=== PATIENT | female | born 1960 | race Caucasian/White ===

== ENCOUNTER → 2017-01-21 19:38 | Outpatient (CLI) | payer OTHER | END | disposition home or self-care (01) | LOC: D.LABREF 19:38 | DX: N39.0 Urinary tract infection, site not specified (principal) ==

== ENCOUNTER 2017-01-22 10:58 | Emergency (ER) | payer OTHER ==
[2017-01-22 12:18] LABS: BASOPHILS 0.7 % (0-2); EOSINOPHILS 7.4 % (0-7); HEMATOCRIT 35.7 % (36.0-48.0); HEMOGLOBIN 11.8 g/dL (12-16); IMMATURE GRANULOCYTES 0.2 % (0-5); LYMPHOCYTES 25.2 % (15-50); MCHC 33.1 g/dL (31.0-37.0); MCV 84.8 fL (80.0-100.0); MONOCYTES 8.3 % (2-11); NEUTROPHILS 58.2 % (40-80); PLATELET COUNT 334 10x3/uL (130-400); RBC 4.21 10x6/uL (4.00-5.40); RDW 13.6 % (11.5-14.5); WBC 5.4 10x3/uL (4.8-10.8)
[2017-01-22 12:28] LABS: APTT 26.5 SECONDS (22.8-39.4); INR 0.91 (0.85-1.17); PROTIME 12.1 SECONDS (11.6-15.0)
[2017-01-22 12:33] LABS: ALBUMIN 3.5 g/dL (3.4-5.0); ALKALINE PHOSPHATASE 147 U/L (46-116); ALT (SGPT) 80 U/L (10-68); CALC OSMOLALITY 265 mosm/kg (275-300); CARBON DIOXIDE 27.3 mmol/L (21.0-32.0); CHLORIDE - SERUM 97 mmol/L (98-107); CREATININE - SERUM 0.9 mg/dL (0.6-1.3); GLUCOSE 105 mg/dL (74-106); POTASSIUM - SERUM 4.1 mmol/L (3.5-5.1); PROTEIN - SERUM 7.3 g/dL (6.4-8.2); SODIUM 132 mmol/L (136-145); UREA NITROGEN 14 mg/dL (7-18); eGFR NON AFRICAN AMERICAN 68 mL/min (90-120)
[2017-01-22 12:40] LABS: LIPASE 133 U/L (73-393); TROPONIN-I < 0.017 ng/mL (0.000-0.060)
== END 2017-01-22 16:33 | disposition home or self-care (01) ==
LOC: D.ER 10:58
PROVIDERS: Emergency Medicine
DX: K57.92 Diverticulitis of intestine, part unspecified, without perforation or abscess without bleeding (principal)

== ENCOUNTER → 2017-01-28 16:04 | Outpatient (CLI) | payer OTHER ==
[2017-01-28 20:37] LABS: AMYLASE - SERUM 68 U/L (25-115); LIPASE 150 U/L (73-393)
== END | disposition home or self-care (01) ==
LOC: D.LABREF 16:04
PROVIDERS: Family Medicine
DX: R10.9 Unspecified abdominal pain (principal)

== ENCOUNTER 2017-05-18 08:47 | Day surgery (SDC) | payer MEDICAID ==
[2017-05-18] MEDS ORDERED: LEVOXYL25 MCG PO (09:25)
[2017-05-18] MEDS ORDERED: ESTRACE2 MG PO (09:26)
[2017-05-18] MEDS ORDERED: OMEPRAZOLE40 MG PO (09:27)
[2017-05-18] MEDS ORDERED: HYDROCODONE-APA1 TAB PO (09:27)
[2017-05-18 10:08] VITALS: BMI 29.3
--- NOTE | 2017-05-18 18:25 | NUR ---
PATIENT AMBULATING AROUND ROOM WITHOUT DIZZINESS OR DIFFICULTY. LEFT AC PIV DC'D WITH TIP INTACT. PATIENT DRESSING IN PERSONAL CLOTHING
--- NOTE | 2017-05-18 18:30 | NUR ---
DISCHARGED HOME VIA WHEELCHAIR TO PRIVATE VEHICLE WITH SPOUSE
--- NOTE | 2017-05-22 16:01 | OP ---
PATIENT NAME: J LUIS JACOBO MEDICAL RECORD: [id number] :56 LOCATION:DFLAVIO ADMISSION DATE: SURGEON: GELY GONZALEZ MD DATE OF OPERATION: 05/18/2017 PROCEDURE: EGD with food bolus removal and biopsy. REFERRING PHYSICIAN: Gordon Isaac MD. INDICATIONS: Ms. Jacobo is a very pleasant 56-year-old woman with a history of esophageal Schatzki's ring, who presented to [facility] Emergency Department after developing a food bolus after eating a piece of chicken. She was evaluated at [facility] in stable condition and transferred to outpatient department at [facility]. She received IV Valium 10 mg this morning and morphine 10 mg early afternoon. She continues to have difficulty managing or oral secretion. She presents for outpatient EGD. PREMEDICATIONS: Total IV anesthesia, propofol 200 mg, succinylcholine 100 mg. INSTRUMENT: Olympus video gastroscope. PROCEDURE AND FINDINGS: After receiving informed consent, Ms. Turner posterior pharynx was anesthetized with Cetacaine spray, and she was sedated with propofol and then received succinylcholine. Her trachea was intubated by anesthesia and then the gastroscope was introduced per orally and advanced into the duodenum. There was a proximal esophageal food bolus, which was removed per orally with suctioning from the gastroscope and then there was a food bolus at the GE junction that was advanced gently without difficulty into her hiatal hernia. She had a large, possibly paraesophageal hernia. There were numerous gastric polyps in the body of the stomach, several of which were biopsied. There were streaks of erythema in the antrum and antral biopsies were obtained to rule out Helicobacter pylori. On retroflexion, the hiatal hernia was appreciated. There was no lesion seen in the fundus. Pylorus was patent and competent. Duodenal mucosa was without erythema or ulcers. The major ampulla was mildly prominent, slightly erythematous and was biopsied. As the gastroscope was withdrawn, repeat inspection was made of the esophagus. At the GE junction, was a thick nonobstructive Schatzki's ring that was moderately erythematous and mildly ulcerated (not dilated on this exam). There was no obvious stricture or narrowing in the mid or proximal esophagus. The gastroscope was withdrawn. She was then extubated. No immediate complications. Procedure was well tolerated. ASSESSMENT: 1. Proximal and distal esophageal food bolus, status post removal. 2. Thick esophageal Schatzki's ring at the gastroesophageal junction. 3. Large hiatal hernia may be paraesophageal in nature. 4. Gastric polyps, status post biopsy. 5. Mild gastritis. 6. Prominent major ampulla, status post biopsy. RECOMMENDATIONS: 1. Follow up histopathology. 2. We would recommend avoiding nonsteroidal anti-inflammatory drugs for a week. 3. Gastric soft diet. 4. Continue omeprazole 40 mg p.o. daily. 5. Upper gastrointestinal series to further evaluate her hiatal hernia. OPERATIVE REPORT [id number] J LUIS JACOBO 6. Follow up EGD in approximately 4 weeks, at which time esophagus will have adequately healed for repeat EGD and esophageal balloon dilatation. TRANSINT:[id number] Voice Confirmation ID: [id number] DOCUMENT ID: [id number] GELY GONZALEZ MD at 1601 CC: GORDON ISAAC MD [id number] DICTATION DATE: 05/18/171704 SEISMIC OBSERVER: 05/18/17 8789 [facility] 05/18/17 [address] [place] [address]
== END 2017-05-18 18:30 | disposition home or self-care (01) ==
LOC: D.OPS 08:47
DX: T18.128A Food in esophagus causing other injury, initial encounter (principal); K22.2 Esophageal obstruction; K44.9 Diaphragmatic hernia without obstruction or gangrene; K31.7 Polyp of stomach and duodenum; K29.70 Gastritis, unspecified, without bleeding; Z01.812 Encounter for preprocedural laboratory examination

== ENCOUNTER 2017-05-22 17:57 | Emergency (ER) | payer MEDICAID ==
[~2017-05-22 17:57] MED LIST: ESTRACE2 MG PO; HYDROCODONE-APA1 TAB PO; LEVOXYL25 MCG PO; OMEPRAZOLE40 MG PO
[2017-05-22 18:32] LABS: BASOPHILS 0.4 % (0-2); EOSINOPHILS 4.9 % (0-7); HEMATOCRIT 34.7 % (36.0-48.0); HEMOGLOBIN 11.1 g/dL (12-16); IMMATURE GRANULOCYTES 0.3 % (0-5); LYMPHOCYTES 42.4 % (15-50); MCH 24.2 pg (26.0-34.0); MCV 75.6 fL (80.0-100.0); MEAN PLATELET VOLUME 8.7 fL (7.4-10.4); MONOCYTES 7.6 % (2-11); NEUTROPHILS 44.4 % (40-80); RBC 4.59 10x6/uL (4.00-5.40); RDW 14.7 % (11.5-14.5); WBC 6.9 10x3/uL (4.8-10.8)
[2017-05-22 18:34] LABS: PLATELET COUNT 408 10x3/uL (130-400)
[2017-05-22 18:35] LABS: APPEARANCE HAZY (CLEAR); BILIRUBIN NEGATIVE (NEGATIVE); COLOR YELLOW (YELLOW); GLUCOSE NEGATIVE (NEGATIVE); KETONE NEGATIVE (NEGATIVE); NITRITE NEGATIVE (NEGATIVE); PH 6.5 (5.0-6.0); PROTEIN NEGATIVE (NEGATIVE); UROBILINOGEN NORMAL (NORMAL)
[2017-05-22 18:53] LABS: ANION GAP 13.7 mmol/L (8-16); BILIRUBIN - TOTAL 0.23 mg/dL (0.2-1.3); CREATININE - SERUM 0.9 mg/dL (0.6-1.3); POTASSIUM - SERUM 3.7 mmol/L (3.5-5.1); PROTEIN - SERUM 8.2 g/dL (6.4-8.2)
== END 2017-05-22 21:25 | disposition home or self-care (01) ==
LOC: D.ER 17:57
PROVIDERS: Family Medicine; Nurse Practitioner Acute Care
DX: K59.00 Constipation, unspecified (principal)

== ENCOUNTER 2017-09-23 09:38 | Outpatient (CLI) | payer MEDICAID | END 2017-09-23 11:45 | LOC: D.OPS 09:38 | DX: K21.9 Gastro-esophageal reflux disease without esophagitis (principal); R11.0 Nausea; R10.13 Epigastric pain ==

== ENCOUNTER 2017-11-02 07:00 | Day surgery (SDC) | payer MEDICAID ==
[2017-11-01 09:47] LABS: BASOPHILS 0.8 % (0-2); EOSINOPHILS 2.1 % (0-7); HEMATOCRIT 33.5 % (36.0-48.0); HEMOGLOBIN 10.5 g/dL (12-16); IMMATURE GRANULOCYTES 0.2 % (0-5); LYMPHOCYTES 35.9 % (15-50); MCH 22.5 pg (26.0-34.0); MCHC 31.3 g/dL (31.0-37.0); MCV 71.7 fL (80.0-100.0); MONOCYTES 6.9 % (2-11); NEUTROPHILS 54.1 % (40-80); PLATELET COUNT 342 10x3/uL (130-400); RBC 4.67 10x6/uL (4.00-5.40); RDW 16.7 % (11.5-14.5); WBC 5.2 10x3/uL (4.8-10.8)
[2017-11-01 09:59] LABS: ANION GAP 11.4 mmol/L (8-16); CALCIUM 9.3 mg/dL (8.5-10.1); CARBON DIOXIDE 26.7 mmol/L (21.0-32.0); CREATININE - SERUM 0.9 mg/dL (0.6-1.3); POTASSIUM - SERUM 4.1 mmol/L (3.5-5.1)
[~2017-11-02] VITALS: Ht 152.4 cm; Wt 69.4 kg
--- NOTE | ~2017-11-02 | OP ---
PATIENT NAME: J LUIS JACOBO MEDICAL RECORD: [id number] :56 LOCATION:D.MS Silva.2212 ADMISSION DATE: SURGEON: CARLOS EDUARDO GALVEZ MD DATE OF OPERATION: 11/02/2017 PREOPERATIVE DIAGNOSES: 1. Gastroesophageal reflux disease. 2. Hiatal hernia. 3. Hyperthyroidism. POSTOPERATIVE DIAGNOSES: 1. Gastroesophageal reflux disease. 2. Hiatal hernia. 3. Hyperthyroidism. PROCEDURE: Laparoscopic hiatal hernia repair with Toupet fundoplication. SURGEON: Carlos Eduardo Galvez MD REPORT OF PROCEDURE: The patient's abdomen was prepped and draped in sterile fashion. A Veress needle was inserted in the left upper quadrant and the abdomen was insufflated. An 11-mm Visiport trocar was inserted in the midline just above the umbilicus. I could see the Veress needle and there was no sign of any injury to bowel or surrounding structures. The Veress needle was then removed and an 11-mm trocar was placed in its place in the left subcostal region. A 5-mm trocar was then placed in the epigastrium, a 5-mm trocar was placed in the right lateral subcostal region, and a final 5-mm trocar was placed in the left lateral abdomen. A liver retractor was inserted and the left lobe of the liver was elevated. At this point, we could see that there was a hiatal hernia with approximately a third of the stomach projecting up into the chest. We started our dissection on the lesser curvature taking down the lesser omentum using Harmonic scalpel. This dissection was continued to the right side of the right chadd. We dissected up into the thoracic cavity and freed up all the adhesions that were present as far proximally and distally as possible. We then approached the greater curvature and fundus of the stomach and took down the short gastrics using Harmonic scalpel. We continued this dissection up to the left side of the right chadd. We continued our dissection into the thoracic cavity. At this point, we had a 360-degree inspection of the esophagus, and the stomach and hiatal hernia were easily placed in the abdominal cavity with no tension. The esophageal hiatus was then reapproximated with interrupted 0 Polydeks times 3. We then performed a 270-degree posterior partial Toupet wrap of the fundus of the stomach around the distal esophagus. This was performed with a total of 6 sutures taking a bite of the esophagus and the edges of the stomach. The wrap appeared to be in good position with no sign of any active bleeding. The indwelling orogastric tube was then removed easily. We irrigated out the abdomen and assured there was no sign of any bleeding. The 11-mm trocar site fascias were then closed with interrupted 0 Vicryls using a Denis-Ashkan suture passer device. The ports and insufflation were then removed. The subcutaneous tissues were all irrigated out and then reapproximated and then infused with 10 mL of 0.25% Marcaine with epinephrine. The skin incisions were closed with subcutaneous 5-0 Monocryl and dressed appropriately. COMPLICATIONS: None. CONDITION: Stable. OPERATIVE REPORT [id number] J LUIS JACOBO ANESTHESIA: General endotracheal and local. BLOOD LOSS: 30 mL. TRANSINT:[id number] Voice Confirmation ID: [id number] DOCUMENT ID: [id number] CARLOS EDUARDO GALVEZ MD at 1413 CC: GELY GONZALEZ MD [id number] DICTATION DATE: 11/02/17 1059 BUY BOAT OPERATOR: 11/02/17 1204 [facility] [address] [place] [address]
[~2017-11-02 07:00] MED LIST changes: +CYCLOBENZAPRINE10 MG PO; +ESTRACE 0.5 MG0.5 MG PO; -ESTRACE2 MG PO; +LEVOXYL125 MCG PO; -LEVOXYL25 MCG PO; +MELATONIN5 MG PO; +OMEPRAZOLE20 M1 PO; -OMEPRAZOLE40 MG PO; +ULTRAM50 MG PO; +ZANTAC300 MG PO
[2017-11-02 08:11] VITALS: BP 126/67; BMI 29.9
[2017-11-02 11:51] VITALS: BP 143/56
[2017-11-02 12:19] VITALS: BP 178/108
[2017-11-02 22:21] VITALS: BP 130/58
[2017-11-03 01:10] VITALS: BP 134/58
[2017-11-03 05:03] VITALS: BP 100/42
[2017-11-03 06:40] LABS: CALC OSMOLALITY 277 mosm/kg (275-300); CALCIUM 8.4 mg/dL (8.5-10.1); CARBON DIOXIDE 25.3 mmol/L (21.0-32.0); CHLORIDE - SERUM 106 mmol/L (98-107); CREATININE - SERUM 0.8 mg/dL (0.6-1.3); GLUCOSE 88 mg/dL (74-106); POTASSIUM - SERUM 3.7 mmol/L (3.5-5.1); SODIUM 141 mmol/L (136-145); eGFR NON AFRICAN AMERICAN 78 mL/min (90-120)
[2017-11-03 06:41] LABS: UREA NITROGEN 7 mg/dL (7-18)
[2017-11-03 06:42] LABS: BASOPHILS 0.2 % (0-2); EOSINOPHILS 0 % (0-7); HEMATOCRIT 31.6 % (36.0-48.0); HEMOGLOBIN 9.6 g/dL (12-16); IMMATURE GRANULOCYTES 0.2 % (0-5); LYMPHOCYTES 27.7 % (15-50); MCH 22.1 pg (26.0-34.0); MCHC 30.4 g/dL (31.0-37.0); MCV 72.8 fL (80.0-100.0); MEAN PLATELET VOLUME 9.2 fL (7.4-10.4); MONOCYTES 10.1 % (2-11); NEUTROPHILS 61.8 % (40-80); PLATELET COUNT 298 10x3/uL (130-400); RBC 4.34 10x6/uL (4.00-5.40); RDW 16.8 % (11.5-14.5); WBC 4.7 10x3/uL (4.8-10.8)
[2017-11-03 07:52] VITALS: BP 139/59
[2017-11-03 12:20] VITALS: BP 173/74
[2017-11-03 12:30] VITALS: Ht 152.4 cm; Wt 69.4 kg
[2017-11-03] MEDS ORDERED: REGLAN10 MG PO (12:47)
[2017-11-03] MEDS ORDERED: HYDROCODONE-APA1 TAB PO (12:48)
== END 2017-11-03 15:32 | disposition home or self-care (01) ==
LOC: D.MS 07:00 → D.OPS 07:00 → D.PAN 09:00 → D.MS 11:35 → D.OPS 11-03 15:32
PROVIDERS: Surgery
DX: K21.9 Gastro-esophageal reflux disease without esophagitis (principal); K44.9 Diaphragmatic hernia without obstruction or gangrene; E05.90 Thyrotoxicosis, unspecified without thyrotoxic crisis or storm; Z01.812 Encounter for preprocedural laboratory examination

== ENCOUNTER 2018-10-18 07:30 | Outpatient (CLI) | payer MEDICAID ==
[~2018-10-18] VITALS: Ht 152.4 cm; Wt 68.6 kg
--- NOTE | ~2018-10-18 | HEMODYNAMI ---
PATIENT:J LUIS JACOBO MEDICAL RECORD: [id number] : 56 LOCATION:DDemetrisCAT ADMISSION DATE: 10/18/18 Generatedon:10/18/20189:21 Patient name: J LUIS JACOBO Patient #: [id number] SSN: : 1960 Date of study: 10/18/2018 Page: Of Hemodynamic Procedure Report Patient Data Patient Demographics Procedure consent was obtained First Name: J LUIS Gender: Female Last Name: DONNELL : 1960 [facility] Initial: HILL Age: 58 year(s) Patient #: [id number] Race: Unknown Additional ID: [id number] Contact details Address: [address] [address] State: [place] City: [place] Zip code: [address] Past Medical History Allergies Allergen Reaction Date Comments Reported Codeine 10/18/2018 Percocet 10/18/2018 Admission Admission Data Admission Date: 10/18/2018 Admission Time: 9:30 Procedure Procedure Types Cath Procedure Diagnostic Procedure LHC LHC w/Coronaries Procedure Description Procedure Date Procedure Date: 10/18/2018 Procedure Start Time: 9:04 Procedure End Time: 9:21 Procedure Staff Name Function Emanuel Cat MD Performing Physician Hal Landaverde RN Nurse Africa Cosme RT Scrub Kaylynn Duron RT Monitor Procedure Data Cath Procedure Fluoroscopy Diagnostic fluoroscopy Total fluoroscopy Time: 3.8 time: 3.8 min min Diagnostic fluoroscopy Total fluoroscopy dose: 226 dose: 226 mGy mGy Contrast Material Contrast Material Type Amount (ml) Isovue 300 35 Entry Location Entry Primary Successful Side Size Upsize Upsize Entry Closure Andersen ccessful Closure Location (Fr) 1 (Fr) 2 (Fr) Remarks Device Remarks Radial Right 6 Fr Mechanical artery Short Compression Femoral Right 5 Fr Exoseal artery Estimated blood loss: 5 ml Diagnostic catheters Device Type Used For End Catheter Placement DIAGNOSTIC [place] 110cm 5 Procedure Fr catheter ([id number]) MULTIPACK JL 4.0 5Fr Left Coronary catheter Angiography MULTIPACK 3DRC 5Fr Right Coronary catheter Angiography MULTIPACK Pigtail 5 Fr LV Angiography catheter Procedure Complications No complications Procedure Medications Medication Administration Route Dosage Oxygen etCO2 Nasal cannula 2 l/min Zofran I.V. 4 mg Lidocaine 2% added to field 20 Heparin Flush Bag added to field 2 bags (1000units/500ml NS) 0.9% NaCl I.V. 100 ml/hr Radial Cocktail added to field 1 syringe (Verapomil 2mg/Nitro 400mcg/Heparin 1500units) Versed I.V. 2 mg Fentanyl I.V. 50 mcg Versed I.V. 1 mg Fentanyl I.V. 50 mcg Hemodynamics Rest Heart Rate: 79 (bpm) Pressure Samples Time Site Value (mmHg) Purpose Heart Use Rate(bpm) 9:16 LV 120/5,8 EDP 101 Gradients Valve Time Site Site Mean SEP/DFP Peak To Heart Use 1 2 (mmHg) (sec/min) Peak Rate (mmHg) (bpm) Aortic 9:17 LV AO 101 Snapshots Pre Cath Intra NCS Post Cath Vital Signs Time Heart Resp SPO2 etCO2 NIBP (mmHg) Rhythm Pain Sedation Rate (ipm) (%) (mmHg) Status Level (bpm) 8:59:03 78 25 100 34.9 155/81(117) NSR 0 (11) 10(A) , No pain 9:03:19 77 23 99 0 133/68(106) NSR 0 (11) 10(A) , No pain 9:07:31 80 21 96 28.8 149/74(117) NSR 0 (11) 9(A) , No pain 9:11:43 97 29 99 34.9 111/67(80) NSR 0 (11) 9(A) , No pain 9:15:49 96 18 100 34.1 129/69(100) NSR 0 (11) 9(A) , No pain 9:20:01 93 16 100 34.2 120/67(84) NSR 0 (11) 10(A) , No pain Medications Time Medication Route Dose Verified Delivered Reason Notes Effectiveness by by 8:58:12 Oxygen etCO2 2 l/min Emanuel Hong used for Nasal St Christiano Landaverde RN procedure cannula 8:58:18 Zofran I.V. 4 mg Emanuel Hong Per [facility] Christiano Landaverde RN physician 9:00:59 Lidocaine 2% added 20ml Emanuel Castellanos for local to vial [facility] anesthetic field MD ISBELL 9:01:04 Heparin Flush added 2 bags Emanuel Castellanos used for Bag to [facility] procedure (1000units/500ml field MD ISBELL NS) 9:01:14 0.9% NaCl I.V. 100 Emanuel Hong Per ml/hr St Christiano martinez MD 9:01:21 Radial Cocktail added 1 Emanuel Castellanos for (Verapomil to syringe [facility] vasodilation 2mg/Nitro field MD ISBELL 400mcg/Heparin 1500units) 9:03:17 Versed I.V. 2 mg Emanuel Hong for sedation St Christiano Landaverde RN, MD 9:03:24 Fentanyl I.V. 50 mcg Emanuel Hong for sedation St Christiano Landaverde RN, MD 9:08:34 Versed I.V. 1 mg Emanuel Blackie for sedation St Christiano Landaverde RN, MD 9:08:38 Fentanyl I.V. 50 mcg Emanuel Hong for sedation St Christiano Landaverde RN, MD Procedure Log Time Note 8:40:13 Time tracking: Regular hours (M-F 7:00 - 5:00) 8:40:17 Plan of Care:Hemodynamics will remain stable., Cardiac rhythm will remain stable., Comfort level will be maintained., Respiratory function will remain adequate., Patient/ family verbilizes understanding of procedure., Procedure tolerated without complication., Recovers from procedure without complications.. 8:41:50 Kaylynn Counts RT(R) sent for patient. Start room use. 8:49:37 Patient received from Pre/Post Procedure Room to [facility] 2 Alert and oriented. Tansferred to table in Supine position. 8:49:38 Warm blankets applied, and laure hugger turned on for patient comfort. 8:49:39 Correct patient and procedure confirmed by team. 8:49:40 Signed procedure consent form obtained from patient. 8:49:41 ECG and BP/O2 sat monitors applied to patient. 8:51:28 Full Disclosure recording started 8:51:58 H&P Date Dictated: 10/13/2018 Within 30 days and on chart., H&P Addendum completed by physician on day of procedure. (MUST COMPLETE FOR ALL OUTPATIENTS). 8:51:59 Pre-procedure instructions explained to patient. 8:51:59 Pre-op teaching completed and patient verbalized understanding. 8:52:01 Family in waiting room. 8:52:03 Patient NPO since Midnight. 8:52:58 Patient allergic to Codeine 8:53:03 Patient allergic to Percocet 8:53:06 Is the patient allergic to Iodine/contrast media? No. 8:53:07 Is patient on blood thinner?No 8:53:09 Patient diabetic? No. 8:53:12 Previous problem with sedation/anesthesia? No ? 8:53:13 Snore? Yes 8:53:14 Sleep apnea? No 8:53:15 Deviated septum? No 8:53:15 Opens mouth fully? Yes 8:53:16 Sticks out tongue? Yes 8:53:18 Airway obstruction? No ? 8:53:20 Dentures? Yes in 8:53:24 Pre procedure: right dorsailis pedis pulse 2+ Normal; easily identifiable; not easily obliterated 8:53:25 Modified Olegario's test Ulnar < 7 seconds 8:53:27 Patient pain scale 0/10 ?. 8:53:34 IV patent on arrival in right forearm with 0.9% NaCl at [facility]. 8:53:35 Lab results completed and on chart. 8:54:20 Right Radial & Right Groin area was prepped with chlora-prep and draped in sterile fashion 8:54:21 Alarms reviewed by R. N. 8:54:21 Sharps counted by scrub and verified by R.N. 8:54:27 Use device set Radial Dx or PCI 8:54:28 ACIST Syringe (47142) opened to sterile field. 8:54:28 Medline Cath Pack ([id number]) opened to sterile field. 8:54:28 Bag Decanter (2002S) opened to sterile field. 8:54:29 DIAGNOSTIC WIRE .035 260cm J wire (789476) opened to sterile field. 8:54:30 ACIST Hand Control (98558) opened to sterile field. 8:54:30 ACIST Manifold (26054) opened to sterile field. 8:54:34 MBrace Wrist Support ([id number]) opened to sterile field. 8:54:35 SHEATH 6FR Slender (73-0550) opened to sterile field. 8:58:00 Vital chart was started 8:58:12 Oxygen 2 l/min etCO2 Nasal cannula was administered by Hal Landaverde RN; used for procedure; 8:58:18 Zofran 4 mg I.V. was administered by Hal Landaverde RN; Per physician; 8:59:04 Baseline sample Acquired. 9:00:59 Lidocaine 2% 20ml vial added to field was administered by Emanuel Cat MD; for local anesthetic; 9:01:04 Heparin Flush Bag (1000units/500ml NS) 2 bags added to field was administered by Emanuel Cat MD; used for procedure; 9:01:14 0.9% NaCl 100 ml/hr I.V. was administered by Hal Landaverde RN; Per physician; 9:01:21 Radial Cocktail (Verapomil 2mg/Nitro 400mcg/Heparin 1500units) 1 syringe added to field was administered by Emanuel Cat MD; for vasodilation; 9:02:29 Zero performed for pressure channel P1 9:02:33 Final Timeout: patient, procedure, and site verified with staff and physician. All members of the team are in agreement. 9:02:37 Right Radial site verified by team. 9:02:40 Maximum allowable Isovue 300 dose 300ml. Physician notified. (300ml for normal creatinines. For patients with creatinine of 1.7 or higher multiply weight(kg) x 5 divided by creatinine.) 9:02:44 Fire Safety Assessment: A--An alcohol-based skin anteseptic being used preoperatively., C--Open oxygen or nitrous oxide is being used., D--An ESU, laser, or fiber-optic light is being used. 9:02:47 Physical assessment completed. ASA score P 2 - A patient with mild systemic disease as per Emanuel Cat MD. 9:02:50 Sedation plan: IV Moderate Sedation Medication:Versed, Fentanyl 9:03:17 Versed 2 mg I.V. was administered by Hal Landaverde RN; for sedation; 9:03:24 Fentanyl 50 mcg I.V. was administered by Hal Landaverde RN; for sedation; 9:04:10 Procedure started. 9:04:17 Local anesthetic to right radial artery with Lidocaine 2% by Emanuel Cat MD.INITIAL ACCESS ONLY 9:07:18 A 6 Fr Short sheath was inserted into the Right Radial artery 9:08:19 A DIAGNOSTIC [place] 110cm 5 Fr catheter (242233) was advanced over the wire and used for Procedure. UNABLE TO ADVANCE INTO AORTA 9:08:34 Versed 1 mg I.V. was administered by Hal Landaverde RN; for sedation; 9:08:38 Fentanyl 50 mcg I.V. was administered by Hal Landaverde RN; for sedation; 9:09:50 GLIDE WIRE ANGLE 260cm (AI4464) opened to sterile field. 9:10:06 EXCH GLIDE wire advanced. 9:11:31 Wire removed. 9:11:35 Catheter removed. 9:12:35 Use device set Multipack Set 9:12:37 DIAGNOSTIC Multipack 5Fr catheter set (YR0889) opened to sterile field. 9:12:38 SHEATH 5FR Esperance (QRU992) opened to sterile field. 9:12:49 Local anesthetic to right femoral artery with Lidocaine 2% by Emanuel Cat MD.ADDITIONAL ACCESS 9:12:58 A 5 Fr sheath was inserted into the Right Femoral artery 9:13:32 A MULTIPACK JL 4.0 5Fr catheter was advanced over the wire and used for Left Coronary Angiography. 9:14:20 Catheter removed. 9:14:30 A MULTIPACK 3DRC 5Fr catheter was advanced over the wire and used for Right Coronary Angiography. 9:15:32 Catheter removed. 9:15:37 A MULTIPACK Pigtail 5 Fr catheter was advanced over the wire and used for LV Angiography. 9:15:52 Tegaderm 4 x 4 (1626W) opened to sterile field. 9:15:53 EXOSEAL 5Fr (EX500) opened to sterile field. 9:15:58 TR BAND Standard ([id number]) opened to sterile field. 9:16:48 LV gram done using GENAO 9:16:51 LV hemodynamics recorded. 9:16:59 Injector settings: Ml/sec: 10, Volume: 20, 9:17:05 EF : 55 % 9:17:06 Catheter removed. 9:17:14 Sheath removed intact; hemostasis achieved with Exoseal to the Right Femoral artery. 9:17:23 Sheath removed intact; hemostasis achieved with Mechanical Compression to the Right Radial artery. 9:17:29 Procedure ended.(Physican Out) 9:17:32 Fluoroscopy time 03.80 minutes. 9:17:36 Fluoroscopy dose: 226 mGy 9:17:36 Flurop Dose total: 226 9:17:40 Contrast amount:Isovue 300 35ml. 9:17:41 Sharps counted by scrub and verified by R.N. 9:17:43 TR band inflated with 12cc of air. 9:17:44 Insertion/operative site no bleeding no hematoma. 9:17:46 Post-op/insertion site Right Femoral artery dressed using a 4 x 4 and Tegaderm. 9:17:50 Post right femoral artery:stable, clean and dry 9:17:54 Post right radial artery:stable, clean and dry 9:17:56 Post Procedure Pulses reassessed and unchanged 9:17:58 Post-procedure physical assessment completed. ASA score P 2 - A patient with mild systemic disease as per Emanuel Cat MD. 9:18:00 Post procedure rhythm: unchanged. 9:18:02 Estimated blood loss: 5 ml 9:18:03 Post procedure instruction explained to patient.Patient verbalizes understanding. 9:18:03 Patient needs reinforcement of post procedure teaching. 9:18:39 Procedure Complication : No complications 9:18:45 See physician's report for complete and final results. 9:19:07 Procedure and supply charges have been captured, reviewed, submitted and are correct. 9:20:49 Vital chart was stopped 9:20:50 Report given to Pre/Post Procedure Room. 9:20:53 Patient transfered to Pre/Post Procedure Room with Stretcher. 9:21:09 Procedure ended. 9:21:09 Full Disclosure recording stopped 9:21:14 End room use (Document Last) Device Usage Item Name Manufacture Quantity Catalog Hospital Part Current Minimal Lot# / Number Charge Number Stock Stock Serial# Code ACIST Acist 1 54521 736125 497548 528226 20 Syringe Medical (33614) Systems Inc Medline Medline 1 [id number] 627085 31048 994343 5 Cath Pack ([id number]) Bag Microtek 1 2001S 898161 13551 440015 5 Decanter Medical Inc. () DIAGNOSTIC St Lakhwinder 1 854275 831422 195977 847661 30 WIRE .035 260cm J wire (175819) ACIST Hand Acist 1 92094 019201 640776 123262 5 Control Medical (91430) Systems Inc ACIST Acist 1 50836 900880 322877 528258 5 Manifold Medical (85733) Systems Inc MBrace Advanced 1 140-0250-00 582797 01950 459014 5 Wrist Vascular Support Dynamics ([id number]) SHEATH 6FR Terumo 1 [id number] 180518 098265 172532 5 Slender (80-1060) DIAGNOSTIC Terumo 1 40-7807 912086 019220 682737 5 [place] 110cm 5 Fr catheter (920513) GLIDE WIRE Terumo 1 IC9411 464554 635464 543410 5 ANGLE 260cm (KC9957) DIAGNOSTIC Cardinal 1 SP8308 960577 87621 366816 30 Multipack Health 5Fr catheter set (WL2261) SHEATH 5FR Terumo 1 SCQ655 106599 505615 684980 5 Esperance (QMN441) MULTIPACK Cardinal 1 228242 5 JL 4.0 5Fr Health catheter MULTIPACK Cardinal 1 809467 5 3DRC 5Fr Health catheter MULTIPACK Cardinal 1 474131 5 Pigtail 5 Health Fr catheter Tegaderm 4 3M 1 1626W 776791 918564 137918 5 x 4 (1626W) EXOSEAL 5Fr Cardinal 1 EX500 973861 671002 576125 10 (EX500) Health TR BAND Terumo 1 [id number] 854109 343426 942037 40 Standard ([id number]) Signature Audit Loleta Stage Time Signature Unsigned Intra-Procedure 10/18/2018 Kaylynn 9:21:26 AM Counts RT(R) Signatures Monitor : Kaylynn Signature : Counts RT Date : Time : [facility] [address] [place] [address]
[~2018-10-18 07:30] MED LIST changes: +REGLAN10 MG PO
[2018-10-18] MEDS ORDERED: VALIUM5 MG PO (07:46)
[2018-10-18 07:56] VITALS: BP 130/65; Ht 152.4 cm; Wt 68.6 kg
[2018-10-18 08:01] LABS: BASOPHILS 0.5 % (0-2); EOSINOPHILS 3.4 % (0-7); HEMATOCRIT 37.1 % (36.0-48.0); LYMPHOCYTES 38.9 % (15-50); MCHC 32.3 g/dL (31.0-37.0); MCV 77.3 fL (80.0-100.0); MONOCYTES 7.7 % (2-11); NEUTROPHILS 49.5 % (40-80); PLATELET COUNT 292 10x3/uL (130-400); RDW 16.4 % (11.5-14.5); WBC 3.9 10x3/uL (4.8-10.8)
[2018-10-18 08:27] LABS: CALC OSMOLALITY 269 mosm/kg (275-300); CALCIUM 9.3 mg/dL (8.5-10.1); CARBON DIOXIDE 28.6 mmol/L (21.0-32.0); CHLORIDE - SERUM 99 mmol/L (98-107); CREATININE - SERUM 0.8 mg/dL (0.6-1.3); GLUCOSE 98 mg/dL (74-106); POTASSIUM - SERUM 3.9 mmol/L (3.5-5.1); SODIUM 135 mmol/L (136-145); UREA NITROGEN 12 mg/dL (7-18); eGFR NON AFRICAN AMERICAN 77 mL/min (90-120)
--- NOTE | 2018-10-18 09:45 | NUR ---
ROOM AIR, NO RESP DISTRESS. RIGHT WRIST TR BAND AND RIGHT GROIN 5F EXOSEAL CDI, NO BLEEDING OR HEMATOMA NOTED. NO C/O PAIN OR NAUSEA. VSS. FAMILY AT BEDSIDE, CALL LIGHT WITHIN REACH.
--- NOTE | 2018-10-18 10:15 | NUR ---
RIGHT WRIST TR BAND AND RIGHT GROIN 5F EXOSEAL CDI, NO BLEEDING OR HEAMTOMA NOTED. ROOM AIR WITH NO RESP DISTRESS. NO C/O OR NEEDS VOICED. VSS. WILL CONTINUE TO MONITOR.
--- NOTE | 2018-10-18 10:35 | NUR ---
HOB ELEVATED 30 DEGREES WITH NO BLEEDING NOTED TO RIGHT GROIN 5F EXOSEAL. 2CC OF AIR REMOVED FROM TR BAND WITH BLEEDING NOTED, 3CC OF AIR PLACED BACK INTO TR BAND TO STOP BLEEDING. SIPPING ON DRINK AND EATING SANDWICH WITH NO C/O NAUSEA. VSS. WILL CONTINUE TO MONITOR CLOSELY FOR BLEEDING.
--- NOTE | 2018-10-18 10:49 | NUR ---
3CC OF AIR REMOVED FROM TR BAND WITH NO BLEEDING NOTED. VS. WILL CONTINUE TO MONITOR.
--- NOTE | 2018-10-18 11:02 | NUR ---
3CC OF AIR REMOVED FROM TR BAND WITH NO BLEEDING NOTED. VSS. WILL CONTINUE TO MONITOR.
--- NOTE | 2018-10-18 11:15 | NUR ---
3CC OF AIR REMOVED FROM TR BAND WITH NO BLEEDING NOTED. RIGHT ARM PIV D/C'D WITH CATHETER INTACT, BAND AID TO SITE. RIGHT GROIN 5F EXOSEAL CDI, NO BLEEDING NOTED. UP TO BEDSIDE TO GET DRESSED.
--- NOTE | 2018-10-18 11:22 | NUR ---
REMAINING AIR REMOVED FROM TR BAND WITH NO BLEEDING NOTED. DRESSING PLACED TO SITE. DISCHARGE INSTRUCTIONS GIVEN TO PT AND FAMILY, BOTH VERBALIZED UNDERSTANDING.
--- NOTE | 2018-10-18 11:35 | NUR ---
TAKEN OUT VIA WHEELCHAIR BY CATH FACILITIES PROJECT MANAGER. LEFT FACILITY WITH FAMILY AND ALL PERSONAL BELONGINGS.
--- NOTE | 2018-10-19 14:40 | OP ---
PATIENT NAME: J LUIS JACOBO MEDICAL RECORD: [id number] :56 LOCATION:D.CAT ADMISSION DATE: SURGEON: RAQUEL REYNOLDS MD DATE OF OPERATION: 10/18/2018 PROCEDURE: Left heart catheterization, selective coronary angiography, right femoral artery approach. Unable to the access secondary to tortuosity to the right radial. CATHETERS: A 5-Citizen Of [place] sheath, 5/4 left and right Ermias, 5/4 pig. The procedure was well tolerated. The patient was returned to howard. Sheath removed. ExoSeal device placed. FINDINGS: Left ventriculography in 30-degree GENAO view: Normal wall motion and normal systolic function. CORONARY ANATOMY: LEFT MAIN: Left main is free of disease. LAD: Free of diagonal system. CIRCUMFLEX: Free of disease in the marginal system. RIGHT CORONARY ARTERY: Dominant artery, gives rise to PDA, free of disease. IMPRESSION: Normal systolic function, normal coronary anatomy. TRANSINT:[id number] Voice Confirmation ID: [id number] DOCUMENT ID: [id number] RAQUEL REYNOLDS MD at 1440 CC: [id number] DICTATION DATE: 10/18/18921 LIFE SCIENCE TEACHER: 10/18/18929 DEP CLI 10/18/18 [id number] [place] [address]
== END 2018-10-18 11:35 | disposition home or self-care (01) ==
LOC: D.CATH 07:30
PROVIDERS: ATTEND Internal Medicine Interventional Cardiology
DX: I20.9 Angina pectoris, unspecified (principal); Z01.812 Encounter for preprocedural laboratory examination

== ENCOUNTER 2020-12-23 16:00 | Outpatient (CLI) | payer MEDICARE ==
[2018-10-18 07:56] VITALS: BMI 29.5
[~2020-12-23 16:00] MED LIST changes: +VALIUM5 MG PO
== END 2020-12-23 23:59 | disposition home or self-care (01) ==
LOC: D.MAMMO 16:00
PROVIDERS: ATTEND Clinical Nurse Specialist Family Health
DX: Z12.31 Encounter for screening mammogram for malignant neoplasm of breast (principal)